=== PATIENT | female | born 1980 | race American Indian/Alaskan Native ===

== ENCOUNTER 2017-10-23 09:19 | Emergency (ER) | payer OTHER ==
[2017-10-23 09:26] VITALS: BP 119/79
== END 2017-10-23 10:21 ==
LOC: ED 09:19
DX: T19.2XXA Foreign body in vulva and vagina, initial encounter (principal); Z53.21 Procedure and treatment not carried out due to patient leaving prior to being seen by health care provider

== ENCOUNTER 2021-12-29 12:23 | Emergency (ER) | payer SELFPAY ==
[2021-12-29 13:22] VITALS: BP 147/86
[2021-12-29 17:29] LABS: Bilirubin,Urine NEG (Negative); Blood,Urine SM (Negative); Color,Urine Yellow (Yellow); Mucus,Urine FEW /HPF; Protein,Urine <15 mg/dL mg/dL (Negative); Urobilinogen,Urine < 2.0 mg/dL (<2.0)
[2021-12-29 17:32] LABS: HCG Qualitative,Urine Negative (Negative)
--- NOTE | 2021-12-29 17:54 | Emergency Department Report ---
HPI - General Chief Complaint: Abdominal Pain Time Seen by Provider: 12/29/21 16:58 - HPI HPI: For the last week the patient has been complaining of some lower back pain especially on her left flank area. She has noted also some episodes of blood in her wipes after she urinates. She denies dysuria. She denies nausea vomiting fever chills or any other associated symptoms. Her left flank pain is moderate worse with movement and is nonradiating. She took 800 mg Motrin for this but it did not help. ED Past Medical Hx - Past Medical History Previous Medical History?: No - Surgical History Past Surgical History?: Yes Additional Surgical History: - Family History Family history: no significant - Social History Smoking Status: Current Every Day Smoker Substance Use Type: Alcohol, Marijuana, Non Opiate Pain - Medications Home Medications: Home Medications Medication Instructions Recorded Confirmed Last Taken Type Sulfamethoxazole/Trimethoprim 1 each PO BID 7 Days #14 tab 12/29/21 Unknown Rx [Bactrim DS TAB] traMADoL [Ultram 50 MG tab] 50 mg PO Q6HR PRN 3 Days #12 tablet 12/29/21 Unknown Rx ED Review of Systems ROS: Stated complaint: LOWER BACK PAIN BLOOD IN URINE Other details as noted in HPI Other: All systems reviewed and negative Physical Exam - Physical Exam Vital Signs: Vital Signs 12/29/21 13:19 Temperature 98.4 F Pulse Rate 76 Respiratory 16 Rate Blood Pressure 147/86 [Left] O2 Sat by Pulse 99 Oximetry Physical Exam: Physical Exam: Constitutional: AAOX3. No acute distress. No diaphoresis. HENT: Normocephalic. Pupils equal and reactive. No throat edema or erythema. Neck: No neck rigidity or tenderness. Cardiovascular: Heart sounds: No murmur. Normal rate and regular rhythm. Pulses: Intact distal pulses. Lungs: No wheezing or rales. Chest wall: No tenderness. Abdominal: No distension. No mass/pulsatile mass. No abdominal tenderness, guarding nor rebound. There is moderate tenderness to palpation of the patient's left flank. Musculoskeletal: Normal range of motion. No edema, No calf TTP. Skin: Warm and dry. Neurological: Alert and oriented to person, place, and time. Psychiatric: Mood and affect normal. Normal cognition and memory. Normal judgement. ED Course Vital Signs 12/29/21 13:19 Temperature 98.4 F Pulse Rate 76 Respiratory 16 Rate Blood Pressure 147/86 [Left] O2 Sat by Pulse 99 Oximetry - Reevaluation(s) Reevaluation #1: 12/29/21 18:09 The patient has a likely urinary tract infection with may be a hemorrhagic cystitis component. It is unknown if she has a kidney stone. She did not want to wait for the CAT scan and so she declined it. I gave her some antibiotics and pain medicine she will return if any other issues arise otherwise follow-up with her PCP. Critical care attestation.: If time is entered above; I have spent that time in minutes in the direct care of this critically ill patient, excluding procedure time. ED Disposition Clinical Impression: Pyelonephritis Disposition: HOME / SELF CARE / HOMELESS Is pt being admited?: No Does the pt Need Aspirin: No Condition: Stable Instructions: Pyelonephritis, Adult, Abdominal Pain (ED) Prescriptions: Sulfamethoxazole/Trimethoprim [Bactrim DS TAB] 1 each PO BID 7 Days #14 tab traMADoL [Ultram 50 MG tab] 50 mg PO Q6HR PRN 3 Days #12 tablet PRN Reason: Pain Referrals: KRISTAN PAEZ MD [Primary Care Provider] - 3-5 Days Forms: Work/School Release Form(ED) Time of Disposition: 18:05
== END 2021-12-29 18:36 | disposition home or self-care (01) ==
LOC: ED 12:23
DX: R31.9 Hematuria, unspecified (principal); N12 Tubulo-interstitial nephritis, not specified as acute or chronic; F17.200 Nicotine dependence, unspecified, uncomplicated
CPT/HCPCS: 81001; 81025; 87086; 99283